=== PATIENT | male | born 1950 | race Caucasian/White ===

== ENCOUNTER 2017-01-06 07:59 | Day surgery (SDC) | payer MEDICARE, SELFPAY ==
[~2017-01-06 07:59] MED LIST: Cefuroxime 10 MG/ML SYRINGE EYERT SCH; Lidocaine 1% PF 2 ML SDV INJECT SCH; Pilocarpine 4% Ophth Soln 15 ML Bot EYERT SCH
[2017-01-06] MEDS: Polymyxin B/Trimethoprim 10 ML Bottle EYERT SCH ×3 (08:28→10:28)
--- NOTE | 2017-01-06 08:31 | PCM.PREANE ---
Preanesthetic Assessment - Procedure Proposed Procedure: Right eye cataract extraction with IOL - Anesthesia/Transfusion/Family Hx Anesthesia History: Prior Anesthesia Without Reaction Type of Anesthesia Reaction: Unknown Family History of Anesthesia Reaction: No Transfusion History: No Prior Transfusion(s) Type of Transfusion Reactions: Reports: Unknown Intubation History: Unknown - Review of Systems General: No Symptoms Pulmonary: No Symptoms Cardiovascular: Other (HTN controlled with medication ) Gastrointestinal: Other (GERD) Neurological: No Symptoms Other: Reports: None - Physical Assessment NPO Status Date: 01/05/17 NPO Status Time: 20:30 O2 Sat by Pulse Oximetry: 98 Respiratory Rate: 16 Vital Signs: Last Vital Signs Temp 36.7 C 01/06/17 08:05 Pulse 64 01/06/17 08:05 Resp 16 01/06/17 08:05 BP 143/67 H 01/06/17 08:05 Pulse Ox 98 01/06/17 08:05 Height: 1.75 m Weight: 65.771 kg ASA Class: 2 Mental Status: Alert & Oriented x3 Airway Class: Mallampati = 3 Dentition: Reports: Normal Dentition Thyro-Mental Finger Breadths: 3 Mouth Opening Finger Breadths: 3 ROM/Head Extension: Full Lungs: Clear to auscultation, Normal respiratory effort Cardiovascular: Regular Rate, Regular Rhythm - Allergies Allergies/Adverse Reactions: Allergies Allergy/AdvReac Type Severity Reaction Status Date / Time No Known Allergies Allergy Verified 01/05/17 16:34 - Blood Blood Available: No Product(s) Available: None - Anesthesia Plan Pre-Op Medication Ordered: None Beta Pham: Metoprolol Med Last Dose Date: 01/06/17 Med Last Dose Time: 06:45 - Acknowledgements Anesthesia Type Planned: MAC Pt an Appropriate Candidate for the Planned Anesthesia: Yes Alternatives and Risks of Anesthesia Discussed w Pt/Guardian: Yes Pt/Guardian Understands and Agrees with Anesthesia Plan: Yes PreAnesthesia Questionnaire - SUBSTANCE USE Smoking Status *Q: Current Every Day Smoker (40 years 1.5ppd) Tobacco Use Within Last Twelve Months: Cigarettes Second Hand Smoke Exposure: No Days Per Week of Alcohol Use: 7 Number of Drinks Per Day: 8 Total Drinks Per Week: 56 Date of Last Drink: 01/05/17 Time of Last Drink: 17:00 - HOME MEDS Home Medications: Home Meds Erythromycin Base [Erythromycin] 1 applic EYEBOTH ASDIRECTED 01/05/17 [History] Lisinopril 40 mg PO DAILY 01/05/17 [History] Metoprolol Succinate [Toprol XL] 50 mg PO DAILY 01/05/17 [History] Omeprazole [Omeprazole] 20 mg PO DAILY 01/05/17 [History] amLODIPine [Norvasc] 5 mg PO DAILY 01/05/17 [History] Aspirin [Adult Low Dose Aspirin EC] 81 mg PO DAILY 01/06/17 [History] - CURRENT (IN HOUSE) MEDS Current Meds: Current Medications Brimonidine Tartrate (Alphagan 0.2% Ophth Soln) 0 ml EYERT ASDIRECTED ABELARDO Stop: 01/06/17 18:00 Cefuroxime Sodium (Zinacef) 0 mg EYERT ASDIRECTED ABELARDO Stop: 01/06/17 18:00 Lidocaine HCl (Xylocaine-Mpf 1%) 10 ml INJECT ASDIRECTED ABELARDO Stop: 01/06/17 18:00 Phenylephrine HCl (Dirk-Synephrine 2.5% Ophth Soln) 0 ml EYERT ASDIRECTED ABELARDO Stop: 01/06/17 18:00 Pilocarpine HCl (Pilocar 4% Ophth Soln) 0 ml EYERT ASDIRECTED ABELARDO Stop: 01/06/17 18:00 Polymyxin/Trimethoprim Sulfate (Polytrim Ophth Soln) 0 ml EYERT ASDIRECTED ABELARDO Stop: 01/06/17 18:00 Tetracaine HCl (Tetracaine 0.5% Steri-Unit Maritza) 0 ml EYERT ASDIRECTED ABELARDO Stop: 01/06/17 18:00 Tropicamide (Mydriacyl 1% Ophth Soln) 0 ml EYERT ASDIRECTED ABELARDO Stop: 01/06/17 18:00
[2017-01-06] MEDS: Brimonidine 0.2% Ophth Soln 5 ML Bottle EYERT SCH ×3 (08:35→10:28)
[2017-01-06] MEDS: Phenylephrine 2.5% Ophth Soln 2 ML Bot EYERT SCH ×5 (08:44→10:11)
[2017-01-06] MEDS: Tetracaine HCl/PF 0.5% 4 ML Bottle EYERT SCH ×2 (09:57→10:19)
--- NOTE | 2017-01-06 10:31 | PCM48HPAN ---
Post Anesthesia Note - EVALUATION WITHIN 48HRS OF ANESTHETIC Vital Signs in Normal Range: Yes Patient Participated in Evaluation: Yes Respiratory Function Stable: Yes Airway Patent: Yes Cardiovascular Function Stable: Yes Hydration Status Stable: Yes Pain Control Satisfactory: Yes Nausea and Vomiting Control Satisfactory: Yes Mental Status Recovered: Yes
[2017-01-06 10:45] VITALS: BP 130/74
== END 2017-01-06 10:41 | disposition home or self-care (01) ==
LOC: JD.SDS 07:59
PROVIDERS: ATTEND Ophthalmology
PROC: 08RJ3JZ Replacement of Right Lens with Synthetic Substitute, Percutaneous Approach (ICD-10-PCS; principal; 2017-01-06)
DX: H25.811 Combined forms of age-related cataract, right eye (principal); H40.053 Ocular hypertension, bilateral; H35.363 Drusen (degenerative) of macula, bilateral; H35.3131 Nonexudative age-related macular degeneration, bilateral, early dry stage; H34.233 Retinal artery branch occlusion, bilateral; I10 Essential (primary) hypertension; K21.9 Gastro-esophageal reflux disease without esophagitis; F17.210 Nicotine dependence, cigarettes, uncomplicated; Z79.899 Other long term (current) drug therapy
CPT/HCPCS: 66984; A9270; J0697; V2632

== ENCOUNTER 2017-02-01 08:10 | Day surgery (SDC) | payer MEDICARE, SELFPAY ==
[~2017-02-01 08:10] MED LIST changes: +Cefuroxime 10 MG/ML SYRINGE EYELF SCH; -Cefuroxime 10 MG/ML SYRINGE EYERT SCH
[2017-02-01] MEDS: Polymyxin B/Trimethoprim 10 ML Bottle EYELF SCH ×3 (08:45→10:35)
[2017-02-01] MEDS: Brimonidine 0.2% Ophth Soln 5 ML Bottle EYELF SCH ×3 (08:49→10:35)
[2017-02-01] MEDS: Phenylephrine 2.5% Ophth Soln 2 ML Bot EYELF SCH ×5 (08:54→10:19)
--- NOTE | 2017-02-01 09:35 | PCM.PREANE ---
Preanesthetic Assessment - Anesthesia/Transfusion/Family Hx Anesthesia History: Prior Anesthesia Without Reaction Family History of Anesthesia Reaction: No Transfusion History: No Prior Transfusion(s) Type of Transfusion Reactions: Reports: Unknown Intubation History: Unknown - Review of Systems General: No Symptoms Pulmonary: No Symptoms Cardiovascular: No Symptoms Gastrointestinal: No symptoms Neurological: No Symptoms Other: Reports: None - Physical Assessment NPO Status Date: 01/31/17 NPO Status Time: 20:00 Pulse: 61 O2 Sat by Pulse Oximetry: 97 Respiratory Rate: 16 Blood Pressure: 143/69 Temperature: 97.8 C Vital Signs: Last Vital Signs Temp 36.6 C 02/01/17 08:40 Pulse 61 02/01/17 08:40 Resp 16 02/01/17 08:40 BP 143/69 H 02/01/17 08:40 Pulse Ox 97 02/01/17 08:40 Height: 1.75 m Weight: 65.771 kg ASA Class: 2 Mental Status: Alert & Oriented x3 Airway Class: Mallampati = 1 Dentition: Reports: Normal Dentition Thyro-Mental Finger Breadths: 3 Mouth Opening Finger Breadths: 3 ROM/Head Extension: Full Lungs: Clear to auscultation, Normal respiratory effort Cardiovascular: Regular Rate, Regular Rhythm - Allergies Allergies/Adverse Reactions: Allergies Allergy/AdvReac Type Severity Reaction Status Date / Time No Known Allergies Allergy Verified 01/31/17 14:05 - Anesthesia Plan Pre-Op Medication Ordered: None - Acknowledgements Anesthesia Type Planned: MAC Pt an Appropriate Candidate for the Planned Anesthesia: Yes Alternatives and Risks of Anesthesia Discussed w Pt/Guardian: Yes Pt/Guardian Understands and Agrees with Anesthesia Plan: Yes PreAnesthesia Questionnaire HEENT History: Reports: Cataract Cardiovascular History: Reports: Hypertension Respiratory History: Reports: None Gastrointestinal History: Reports: GERD (takes daily OTC med) Genitourinary History: Reports: None Musculoskeletal History: Reports: None Neurological History: Reports: None Psychiatric History: Reports: None Endocrine/Metabolic History: Reports: None Hematologic History: Reports: None Immunologic History: Reports: None Oncologic (Cancer) History: Reports: None Dermatologic History: Reports: None - Infectious Disease History Infectious Disease History: Reports: None - Past Surgical History Head Surgeries/Procedures: Reports: None HEENT Surgical History: Reports: Cataract Surgery Cardiovascular Surgical History: Reports: None Respiratory Surgical History: Reports: None GI Surgical History: Reports: None Female Surgical History: Reports: None Male Surgical History: Reports: None Endocrine Surgical History: Reports: None Neurological Surgical History: Reports: None Musculoskeletal Surgical History: Reports: None Oncologic Surgical History: Reports: None Dermatological Surgical History: Reports: None - SUBSTANCE USE Smoking Status *Q: Current Every Day Smoker (40 years 1.5ppd) Tobacco Use Within Last Twelve Months: Cigarettes Second Hand Smoke Exposure: No Days Per Week of Alcohol Use: 7 Number of Drinks Per Day: 8 Total Drinks Per Week: 56 - HOME MEDS Home Medications: Home Meds Erythromycin Base [Erythromycin] 1 applic EYEBOTH ASDIRECTED 01/05/17 [History] Lisinopril 40 mg PO DAILY 01/05/17 [History] Metoprolol Succinate [Toprol XL] 50 mg PO DAILY 01/05/17 [History] Omeprazole [Omeprazole] 20 mg PO DAILY 01/05/17 [History] amLODIPine [Norvasc] 5 mg PO DAILY 01/05/17 [History] Aspirin [Adult Low Dose Aspirin EC] 81 mg PO DAILY 01/06/17 [History] - CURRENT (IN HOUSE) MEDS Current Meds: Current Medications Brimonidine Tartrate (Alphagan 0.2% Ophth Soln) 0 ml EYELF ASDIRECTED ABELARDO Stop: 02/01/17 16:00 Last Admin: 02/01/17 09:28 Dose: 1 drop Cefuroxime Sodium (Zinacef) 0 mg EYELF ASDIRECTED ABELARDO Stop: 02/01/17 18:00 Lidocaine HCl (Xylocaine-Mpf 1%) 10 ml INJECT ASDIRECTED ABELARDO Stop: 02/01/17 18:00 Phenylephrine HCl (Dirk-Synephrine 2.5% Ophth Soln) 0 ml EYELF ASDIRECTED ABELARDO Stop: 02/01/17 16:00 Last Admin: 02/01/17 09:13 Dose: 1 drop Pilocarpine HCl (Pilocar 4% Ophth Soln) 0 ml EYERT ASDIRECTED ABELARDO Stop: 02/01/17 16:00 Polymyxin/Trimethoprim Sulfate (Polytrim Ophth Soln) 0 ml EYELF ASDIRECTED ABELARDO Stop: 02/01/17 16:00 Last Admin: 02/01/17 09:23 Dose: 1 drop Tetracaine HCl (Tetracaine 0.5% Steri-Unit Maritza) 0 ml EYELF ASDIRECTED ABELARDO Stop: 02/01/17 16:00 Tropicamide (Mydriacyl 1% Ophth Soln) 0 ml EYELF ASDIRECTED ABELARDO Stop: 02/01/17 16:00 Last Admin: 02/01/17 09:18 Dose: 1 drop
[2017-02-01] MEDS: Tetracaine HCl/PF 0.5% 4 ML Bottle EYELF SCH ×2 (10:06→10:24)
[2017-02-01 10:46] VITALS: BP 142/72
== END 2017-02-01 10:45 | disposition home or self-care (01) ==
LOC: JD.SDS 08:10
PROVIDERS: ATTEND Ophthalmology
DX: H26.9 Unspecified cataract (principal); I10 Essential (primary) hypertension; F17.210 Nicotine dependence, cigarettes, uncomplicated; Z79.899 Other long term (current) drug therapy
CPT/HCPCS: 66984; J0697; V2632; A9270-GY

== ENCOUNTER 2017-09-20 07:13 | Day surgery (SDC) | payer MEDICARE ==
--- NOTE | 2017-09-14 16:24 | HP ---
DATE OF ADMISSION: 09/20/2017 HISTORY OF PRESENT ILLNESS: This is the first orthopedic outpatient admission for surgery for this 67-year- old male who is being scheduled for a left carpal tunnel release. 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 He has gone through treatment program which has failed. He has positive nerve conduction studies. He is now being scheduled for a left carpal tunnel release. Procedure has been outlined to him. He understands the procedure and has consented to it.. ALLERGIES: No known drug allergy. CURRENT MEDICATIONS: The patient is on multiple medications including amlodipine, lisinopril, metoprolol, Naprosyn 500 mg. PAST MEDICAL HISTORY: The patient has a history of high blood pressure, arthritis, carpal tunnel syndrome, heartburn. PAST SURGICAL HISTORY: The only surgery has been an endoscopy. He had anesthesia which he notes no anesthesia complications or problems. Has a negative bleeding history, negative blood clot history. SOCIAL HISTORY: The patient is a smoker, 1 pack per day. His alcohol use is 6 beers per day. PHYSICAL EXAMINATION: GENERAL: Today reveals a well-developed, well-nourished, 67-year-old male in moderate distress. HEAD, EYES, EARS, NOSE, THROAT: Normocephalic. NECK: Supple. CHEST: Clear. COR: Regular rate and rhythm. ABDOMEN: Soft. : Intact. EXTREMITIES: Examination of the left hand reveals positive thenar atrophy noted, positive atrophy of the muscle tissues in the palmar aspect. Has mild pain with carpal tunnel pressure and positive Tinel's examination and also previous positive nerve conduction study. ASSESSMENT: Overall impression is left carpal tunnel syndrome. Failed treatment. PLAN: Plan for the patient is to undergo left carpal tunnel release. Procedure has been outlined to him. He understands the procedure risks and consented to it. MMODAL /[id number]
[~2017-09-20 07:13] MED LIST changes: -Cefuroxime 10 MG/ML SYRINGE EYELF SCH; +Lactated Ringers 1,000 ML IV SCH; -Lidocaine 1% PF 2 ML SDV INJECT SCH; +Lidocaine 1%/Sod Bicarbonate in NS 8.4% 1 ML Syringe IDERM PRN; -Pilocarpine 4% Ophth Soln 15 ML Bot EYERT SCH; +Sodium Chloride 0.9% 10 ML Syringe FLUSH PRN
[2017-09-20] MEDS ORDERED: Midazolam 1 MG/ML 2 ML SDV ONE (07:26)
[2017-09-20] MEDS ORDERED: fentaNYL 100 MCG/2 ML SDV ONE (07:26)
[2017-09-20] MEDS ORDERED: Propofol 200 MG/20 ML SDV ONE (07:26)
[2017-09-20] MEDS ORDERED: Ondansetron 4 MG/2 ML SDV ONE (07:26)
[2017-09-20] MEDS ORDERED: Lidocaine 0.5% 50 ML SDV ONE (07:27)
[2017-09-20] MEDS ORDERED: Sodium Bicarbonate 8.4% 50 MEQ/50 ML SDV ONE (07:27)
[2017-09-20] MEDS ORDERED: Lidocaine 1% 4 ML ONE (07:27)
[2017-09-20] MEDS ORDERED: ceFAZolin 1 GM Vial ONE (07:28)
--- NOTE | 2017-09-20 07:37 | PCM.PREANE ---
Preanesthetic Assessment - Anesthesia/Transfusion/Family Hx Anesthesia History: Prior Anesthesia Without Reaction Family History of Anesthesia Reaction: No Transfusion History: No Prior Transfusion(s) Type of Transfusion Reactions: Reports: Unknown Intubation History: Unknown - Review of Systems General: No Symptoms Pulmonary: No Symptoms Cardiovascular: No Symptoms Gastrointestinal: No Symptoms Neurological: No Symptoms, Numbness (left hand) Other: Reports: None - Physical Assessment NPO Status Date: 09/19/17 NPO Status Time: 00:00 Pulse: 70 O2 Sat by Pulse Oximetry: 100 Respiratory Rate: 16 Blood Pressure: 125/69 Temperature: 37.2 C Height: 1.75 m Weight: 58.559 kg ASA Class: 3 Mental Status: Alert & Oriented x3 Dentition: Reports: [place](s) Thyro-Mental Finger Breadths: 3 Mouth Opening Finger Breadths: 3 ROM/Head Extension: Full Lungs: Clear to Auscultation, Normal Respiratory Effort Cardiovascular: Regular Rate, Regular Rhythm - Allergies Allergies/Adverse Reactions: Allergies Allergy/AdvReac Type Severity Reaction Status Date / Time No Known Allergies Allergy Verified 09/19/17 15:21 - Blood Blood Available: No - Anesthesia Plan Pre-Op Medication Ordered: Beta Pham Beta Pham: Metoprolol Med Last Dose Date: 09/20/17 Med Last Dose Time: 06:15 - Acknowledgements Anesthesia Type Planned: CEZAR Pt an Appropriate Candidate for the Planned Anesthesia: Yes Alternatives and Risks of Anesthesia Discussed w Pt/Guardian: Yes Pt/Guardian Understands and Agrees with Anesthesia Plan: Yes PreAnesthesia Questionnaire HEENT History: Reports: Cataract, Impaired Vision, Other (See Below) Other HEENT History: wears glasses Cardiovascular History: Reports: High Cholesterol, Hypertension Respiratory History: Reports: COPD Gastrointestinal History: Reports: Colon Polyp, GERD, Hemorrhoids Genitourinary History: Reports: None 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 Musculoskeletal History: Reports: None, Other (See Below) Other Musculoskeletal History: bilateral carpal tunnel syndrome, hamstring contracture, knee pain Neurological History: Reports: None Psychiatric History: Reports: Addiction, Other (See Below) Other Psychiatric History: ETOH abuse, fatigue, situational anxiety Endocrine/Metabolic History: Reports: None, Osteopenia, Vitamin D Deficiency Hematologic History: Reports: Anemia, Other (See Below) Other Hematologic History: hyponatremia, leukocytopenia, pancytopenia Immunologic History: Reports: None Oncologic (Cancer) History: Reports: None Dermatologic History: Reports: None - Infectious Disease History Infectious Disease History: Reports: None - Past Surgical History Head Surgeries/Procedures: Reports: None HEENT Surgical History: Reports: Cataract Surgery, Oral Surgery Cardiovascular Surgical History: Reports: None Respiratory Surgical History: Reports: None GI Surgical History: Reports: Colonoscopy Female Surgical History: Reports: None Male Surgical History: Reports: None Endocrine Surgical History: Reports: None Neurological Surgical History: Reports: None Musculoskeletal Surgical History: Reports: None Oncologic Surgical History: Reports: None Dermatological Surgical History: Reports: None - SUBSTANCE USE Smoking Status *Q: Current Every Day Smoker Tobacco Use Within Last Twelve Months: Cigarettes Second Hand Smoke Exposure: No Days Per Week of Alcohol Use: 7 Number of Drinks Per Day: 8 Total Drinks Per Week: 56 Recreational Drug Use History: No - HOME MEDS Home Medications: Home Meds Lisinopril 40 mg PO DAILY 01/05/17 [History] Metoprolol Succinate [Toprol XL] 50 mg PO DAILY 01/05/17 [History] Omeprazole [Omeprazole] 20 mg PO DAILY 01/05/17 [History] amLODIPine [Norvasc] 5 mg PO DAILY 01/05/17 [History] Ascorbic Acid [Vitamin C] 1,000 mg PO DAILY 09/19/17 [History] Cholecalciferol (Vitamin D3) [Vitamin D3] 5,000 unit PO DAILY 09/19/17 [History] Naproxen [Naproxen] 500 mg PO BID PRN 09/19/17 [History] Pyridoxine HCl [Vitamin B-6] 200 mg PO DAILY 09/19/17 [History] - CURRENT (IN HOUSE) MEDS Current Meds: Current Medications Lactated Ringer's (Ringers, Lactated) 1,000 mls @ 125 mls/hr IV ASDIRECTED ABELARDO Stop: 09/20/17 23:00 Lidocaine/Sodium Bicarbonate (Buffered Lidocaine 1% In Ns 8.4%) 0.25 ml IDERM ONETIME PRN PRN Reason: Prior to IV Start Stop: 09/20/17 18:00 Sodium Chloride (Saline Flush) 10 ml FLUSH ASDIRECTED PRN PRN Reason: Keep Vein Open Stop: 09/20/17 18:00 Discontinued Medications Cefazolin Sodium (Ancef) Confirm Administered Dose 2 gm .ROUTE .STK-MED ONE Stop: 09/20/17 07:29 Fentanyl (Sublimaze) Confirm Administered Dose 100 mcg .ROUTE .STK-MED ONE Stop: 09/20/17 07:27 Lidocaine HCl (Xylocaine-Mpf 1%) Confirm Administered Dose 4 mls @ as directed .ROUTE .STK-MED ONE Stop: 09/20/17 07:28 Lidocaine HCl (Xylocaine-Mpf 0.5%) Confirm Administered Dose 50 ml .ROUTE .STK- MED ONE Stop: 09/20/17 07:28 Midazolam HCl (Versed 1 Mg/Ml) Confirm Administered Dose 2 mg .ROUTE .STK-MED ONE Stop: 09/20/17 07:27 Ondansetron HCl (Zofran) Confirm Administered Dose 4 mg .ROUTE .STK-MED ONE Stop: 09/20/17 07:27 Propofol (Diprivan 20 Ml) Confirm Administered Dose 200 mg .ROUTE .STK-MED ONE Stop: 09/20/17 07:27 Sodium Bicarbonate (Sodium Bicarbonate 8.4%) Confirm Administered Dose 50 meq .ROUTE .STK-MED ONE Stop: 09/20/17 07:28
[2017-09-20] MEDS ORDERED: Ondansetron 4 MG/2 ML SDV IVPUSH PRN (07:40)
[2017-09-20] MEDS ORDERED: Acetaminophen/Codeine 300-30 MG Tab PO PRN (07:40)
[2017-09-20] MEDS ORDERED: Ketorolac 15 MG/ML SDV IVPUSH PRN (07:40)
[2017-09-20] MEDS ORDERED: Dexamethasone 4 MG/ML 5 ML MDV ONE (08:35)
[2017-09-20 08:52] VITALS: BP 100/58
--- NOTE | 2017-09-20 08:52 | PCM48HPAN ---
Post Anesthesia Note - EVALUATION WITHIN 48HRS OF ANESTHETIC Vital Signs in Normal Range: Yes Patient Participated in Evaluation: Yes Respiratory Function Stable: Yes Airway Patent: Yes Cardiovascular Function Stable: Yes Hydration Status Stable: Yes Pain Control Satisfactory: Yes Nausea and Vomiting Control Satisfactory: Yes Mental Status Recovered: Yes Pulse Rate: 61 SaO2: 96 Resp Rate: 16 Temperature: 36.6 C Blood Pressure: 100/58 - COMMENTS/OBSERVATIONS Free Text/Narrative:: no anesthesia complications noted
--- NOTE | 2017-09-20 13:14 | OR ---
DATE OF OPERATION: 09/20/2017 SURGEON: James Davis MD PREOPERATIVE DIAGNOSIS: Severe carpal tunnel syndrome, left wrist, failed treatment. POSTOPERATIVE DIAGNOSIS: Severe carpal tunnel syndrome, left wrist, failed treatment. ANESTHESIA: Gautam block with sedation. OPERATION PERFORMED: Left carpal tunnel release, exploration of median nerve. DESCRIPTION OF PROCEDURE: The patient was taken to the operative room in a supine position, was placed under a light sedation, and Gautam block anesthesia was given to the left upper extremity. After adequate anesthesia, the operation then proceeded with prepping and draping of the left hand by standard technique and after prepping and draping, the area of incision was then identified. Using an incision approximately 1 cm distal to the flexion crease and paralleling the radial aspect of the ring finger, approximately 1 cm to 1.5 cm incision was used with penetration made through the skin and subcutaneous tissues. These were dissected free from the palmar fascia, which was lightly incised to expose the carpal ligament. Once the ligament was exposed by direct visualization, the ligament was entered into the carpal tunnel, releasing proximally and distally, again, staying to the ulnar aspect of the median nerve. Once the direct visualization release was carried out, the operation proceeded with completion of the release proximally using the carpal mini-incision instruments, and the completion of the release was approximately 1 cm above the flexion crease. The area was then palpated to make sure no fibrous bands remained. The area was free and soft, and the median nerve could be visualized proximally. The operation then proceeded distally, where the thicker portion of the carpal ligament was seen. This was, again, released in a direct visualized procedure to the palmar fat pad. The area was then explored and palpated along the median nerve. No fibrous bands remained. The nerve was free. The vasa vasorum returned quite nicely. The operation proceeded with thorough irrigation of the wound area. After satisfactory visualization of the nerve and repeat exploration to make sure no fibrous bands were present. After irrigating, the operation proceeded with closure of the wound using a horizontal 4-0 Prolene mattress suture and then reinforced with a 5-0 Prolene. The patient was placed in standard dressings and splint. He tolerated this whole procedure well. He left the operating room in a stable condition to his room for recovery. ESTIMATED BLOOD LOSS: MMODAL /[id number]
== END 2017-09-20 09:34 | disposition home or self-care (01) ==
LOC: JD.SDS 07:13
PROVIDERS: ATTEND Specialist
DX: G56.03 Carpal tunnel syndrome, bilateral upper limbs (principal); M19.90 Unspecified osteoarthritis, unspecified site; I10 Essential (primary) hypertension; F17.210 Nicotine dependence, cigarettes, uncomplicated; F10.10 Alcohol abuse, uncomplicated; K21.9 Gastro-esophageal reflux disease without esophagitis; E55.9 Vitamin D deficiency, unspecified; E78.2 Mixed hyperlipidemia; M85.80 Other specified disorders of bone density and structure, unspecified site; J44.9 Chronic obstructive pulmonary disease, unspecified; Z79.899 Other long term (current) drug therapy; Z86.010 Personal history of colon polyps
CPT/HCPCS: 64721; J0690; J1100; J2250; J2405; J3010; J7120; J2704

== ENCOUNTER 2020-10-14 07:10 | Day surgery (SDC) | payer MEDICARE ==
--- NOTE | 2020-10-14 07:29 | PCM.PREANE ---
Preanesthetic Assessment - Anesthesia/Transfusion/Family Hx Anesthesia History: Prior Anesthesia Without Reaction Family History of Anesthesia Reaction: No Transfusion History: No Prior Transfusion(s) Type of Transfusion Reactions: Reports: Unknown Intubation History: Unknown - Review of Systems General: No Symptoms Pulmonary: No Symptoms Cardiovascular: No Symptoms Gastrointestinal: No Symptoms Neurological: No Symptoms Other: Reports: None - Physical Assessment NPO Status Date: 10/14/20 NPO Status Time: 19:00 ASA Class: 2 Mental Status: Alert & Oriented x3 Airway Class: Mallampati = 2 Dentition: Reports: Normal Dentition Thyro-Mental Finger Breadths: 3 Mouth Opening Finger Breadths: 3 ROM/Head Extension: Full Lungs: Clear to Auscultation, Normal Respiratory Effort Cardiovascular: Regular Rate, Regular Rhythm - Allergies Allergies/Adverse Reactions: Allergies Allergy/AdvReac Type Severity Reaction Status Date / Time No Known Allergies Allergy Verified 10/13/20 13:12 - Anesthesia Plan Beta Pham: Metoprolol Med Last Dose Date: 10/14/20 Med Last Dose Time: 08:00 - Acknowledgements Anesthesia Type Planned: MAC Pt an Appropriate Candidate for the Planned Anesthesia: Yes Alternatives and Risks of Anesthesia Discussed w Pt/Guardian: Yes Pt/Guardian Understands and Agrees with Anesthesia Plan: Yes PreAnesthesia Questionnaire HEENT History: Reports: Cataract, Impaired Vision, Other (See Below) Other HEENT History: wears glasses Cardiovascular History: Reports: High Cholesterol, Hypertension Respiratory History: Reports: COPD Gastrointestinal History: Reports: Colon Polyp, GERD, Hemorrhoids Genitourinary History: Reports: None Other Genitourinary History: urge incontinence, frequency 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 Musculoskeletal History: Reports: None, Other (See Below) Other Musculoskeletal History: bilateral carpal tunnel syndrome, hamstring contracture, knee pain Neurological History: Reports: None Psychiatric History: Reports: Addiction, Other (See Below) Other Psychiatric History: ETOH abuse, fatigue, situational anxiety Endocrine/Metabolic History: Reports: None, Osteopenia, Vitamin D Deficiency Hematologic History: Reports: Anemia, Other (See Below) Other Hematologic History: hyponatremia, leukocytopenia, pancytopenia Immunologic History: Reports: None Oncologic (Cancer) History: Reports: None Dermatologic History: Reports: None Other Dermatologic History: right foot puncture wound - Infectious Disease History Infectious Disease History: Reports: None - Past Surgical History Head Surgeries/Procedures: Reports: None HEENT Surgical History: Reports: Cataract Surgery, Oral Surgery Cardiovascular Surgical History: Reports: None Respiratory Surgical History: Reports: None GI Surgical History: Reports: Colonoscopy Female Surgical History: Reports: None Male Surgical History: Reports: None Endocrine Surgical History: Reports: None Neurological Surgical History: Reports: None Musculoskeletal Surgical History: Reports: None Oncologic Surgical History: Reports: None Dermatological Surgical History: Reports: None - SUBSTANCE USE Tobacco Use Status *Q: Current Every Day Tobacco User Tobacco Use Within Last Twelve Months: Cigarettes Days Per Week of Alcohol Use: 6 Number of Drinks Per Day: 6 Total Drinks Per Week: 36 Recreational Drug Use History: No - HOME MEDS Home Medications: Home Meds Lisinopril 40 mg PO DAILY 01/05/17 [History] Omeprazole 20 mg PO DAILY 01/05/17 [History] amLODIPine [Norvasc] 5 mg PO DAILY 01/05/17 [History] Metoprolol Succinate 50 mg PO DAILY 03/22/18 [History] Tamsulosin HCl [Flomax] 0.4 mg PO DAILY 03/22/18 [History] Alendronate Sodium 70 mg PO ASDIRECTED 10/13/20 [History] Cholecalciferol (Vitamin D3) [Vitamin D3] 2,000 unit PO DAILY 10/13/20 [History] Cyanocobalamin (Vitamin B12) [Vitamin B12] 1,000 mcg PO DAILY 10/13/20 [History] Gabapentin [Neurontin] 300 mg PO TID 10/13/20 [History] atorvaSTATin Calcium [Atorvastatin Calcium] 20 mg PO BEDTIME 10/13/20 [History] - CURRENT (IN HOUSE) MEDS Current Meds: Current Medications Lactated Ringer's (Ringers, Lactated) 1,000 mls @ 125 mls/hr IV ASDIRECTED ABELARDO Lidocaine/Sodium Bicarbonate (Lidocaine 1%/Sod Bicarbonate In Ns 8.4% 1 Ml Syringe) 0.25 ml IDERM ONETIME PRN PRN Reason: Prior to IV Start Sodium Chloride (Sodium Chloride 0.9% 10 Ml Syringe) 10 ml FLUSH ASDIRECTED PRN PRN Reason: Keep Vein Open
[2020-10-14] MEDS ORDERED: Propofol 200 MG/20 ML SDV ONE ×2 (07:41→07:54)
[2020-10-14] MEDS ORDERED: Lidocaine 1% 4 ML ONE (07:41)
--- NOTE | 2020-10-14 08:26 | PCM48HPAN ---
Post Anesthesia Note - EVALUATION WITHIN 48HRS OF ANESTHETIC Vital Signs in Normal Range: Yes Patient Participated in Evaluation: Yes Respiratory Function Stable: Yes Airway Patent: Yes Cardiovascular Function Stable: Yes Hydration Status Stable: Yes Pain Control Satisfactory: Yes Nausea and Vomiting Control Satisfactory: Yes Mental Status Recovered: Yes Vital Signs: Last Vital Signs Temp 36.4 C 10/14/20 07:15 Pulse 93 10/14/20 07:15 Resp 20 10/14/20 07:15 BP 130/67 10/14/20 07:15 Pulse Ox 99 10/14/20 07:15
--- NOTE | 2020-10-14 08:38 | PCM.PRNOTE ---
- Free Text/Narrative Note: Date: 10/14/2020 Procedure: screening colonoscopy History: history of adenomatous polyps, but last colonoscopy 10 years ago showed no polyps. Endoscopist: Polo Mi MD Findings: good prep. Terminal ileum intubated. Small polypoid lesion at top of sphincter complex biopsies. Minor internal hemorrhoidal disease, external hemorrhoidal skin tags. Detailed Report: The patient was taken to the endoscopy suite and placed in left lateral decubitus position. Timeout was performed and monitored anesthesia care was initiated. Visual inspection of the anus revealed sizable external hemorrhoidal skin tags. Digital rectal exam was unremarkable. The colonoscope was inserted and advanced to the cecum. The appendiceal orifice was visualized. The terminal ileum was intubated. The scope was slowly withdrawn and mucosal surfaces carefully inspected. No polyps were identified. There was no diverti culosis appreciated. On retroflexion within the rectum, minor internal hemorrhoids were appreciated. There was a small subcentimeter pedunculated polypoid lesion at the top of the sphincter complex. Although this appeared consistent with hypertrophied anal papilla, and had enough of a polypoid appearance that this was biopsied using hot snare. Air was suctioned from the colon and the scope was completely withdrawn. The patient tolerated the procedure well.
[2020-10-14 09:07] VITALS: BP 124/54; PULSE 69
== END 2020-10-14 09:13 | disposition home or self-care (01) ==
LOC: JD.SDS 07:10
PROVIDERS: ATTEND Surgery
DX: Z12.11 Encounter for screening for malignant neoplasm of colon (principal); K62.89 Other specified diseases of anus and rectum; K62.1 Rectal polyp; K64.4 Residual hemorrhoidal skin tags; I10 Essential (primary) hypertension; K64.8 Other hemorrhoids; K21.9 Gastro-esophageal reflux disease without esophagitis; E78.2 Mixed hyperlipidemia; E55.9 Vitamin D deficiency, unspecified; F17.210 Nicotine dependence, cigarettes, uncomplicated; Z79.899 Other long term (current) drug therapy; Z86.010 Personal history of colon polyps; Z85.46 Personal history of malignant neoplasm of prostate; Z98.890 Other specified postprocedural states
CPT/HCPCS: 45385; 88305; J2704; J7120; 00812; 99100